=== PATIENT | female | born 1970 | race Caucasian/White ===

== ENCOUNTER 2020-09-15 16:12 | Emergency (ER) | payer MEDICARE, MEDICAID ==
[2020-09-15 16:18] VITALS: BP 133/89
[2020-09-15] MEDS ORDERED: DICL75TA2 PO (16:28)
--- NOTE | 2020-09-15 16:28 | ED Hip Pain/Injury ---
General Chief Complaint: Hip/Pelvic Problems Stated Complaint: TAILBONE PAIN Nursing Triage Note: Has broken tailbone twice this year and is having pain. Had toradol shot today at the clinic from pcp. Source: patient, RN/MD, RN notes reviewed Exam Limitations: no limitations History of Present Illness Date Seen by Provider: Sep 15, 2020 Time Seen by Provider: 16:15 Initial Comments This patient is a 41-year-old female presents to her chronic tailbone and hip pain. Her previous fractured coccyx. Patient has no recent injuries. Patient en route and recently to the area and establish primary care for [facility] clinic. Patient be removed refills of her chronic medications but clinic advised him to come to the emergency department and established chronic pain management. I did discuss at length with patient that we do not do quite management to the emergency department. I did review patient's history with the patient on nursing staff. And did offer nonsteroidal pain medications patient will need follow-up primary [facility] when transferring medication or prescription for she states understanding. Patient states this resolved Toradol shot in the clinic just prior to arrival to the emergency department. I advised the patient that I could write her prescription for pain medication diclofenac machine was immediately 8 hours before taking medications since was given a shot of Toradol. Patient states understanding. Patient will be discharged home follow up with PCP as instructed. Severity: mild Location: pelvis Method of Injury: unknown Associated Symptoms: denies symptoms Allergies and Home Medications Allergies Coded Allergies: meperidine (Verified Allergy, Unknown, "feels trapped", 09/15/20) Patient Home Medication List Home Medication List Reviewed: Yes Review of Systems Constitutional: No no symptoms reported; see HPI; No chills, No diaphoresis, No dizziness, No fever, No malaise, No weakness, No weight gain, No weight loss, No other EENTM: No see HPI, No no symptoms reported, No ear discharge, No hearing loss, No ear pain, No blurred vision, No double vision, No eye pain, No tearing, No vision loss, No dental problems, No hoarseness, No mouth pain, No mouth swelling, No epistaxis, No nose congestion, No nose pain, No throat pain, No throat swelling, No other Respiratory: No no symptoms reported, No see HPI, No cough, No dyspnea on e xertion, No hemoptysis, No orthopnea, No phlegm, No short of breath, No stridor, No wheezing, No other Cardiovascular: No no symptoms reported, No see HPI, No chest pain, No edema, No Hx of Intervention, No palpitations, No syncope, No vascular heart diseas, No other Genitourinary: No no symptoms reported, No see HPI, No decreased output, No discharge, No dysuria, No frequency, No hematuria, No hesitancy, No incontinence, No nocturia, No pain, No other Musculoskeletal: No no symptoms reported; see HPI; No back pain, No gout, No joint pain, No joint swelling, No muscle pain, No muscle stiffness, No muscle cramps, No muscle twitching, No muscle weakness, No neck pain, No other All Other Systems Reviewed Negative Unless Noted: Yes Past Zsatxxn-Iiqrst-Byfzmk Hx Patient Social History Alcohol Use: Denies Use Recreational Drug Use: No Smoking Status: Unknown if Ever Smoked 2nd Hand Smoke Exposure: No Recent Foreign Travel: No Contact w/Someone Who Travel: No Recent Infectious Disease Expo: No Recent Hopitalizations: No Physical Abuse: No Sexual Abuse: No Mistreated: No Fear: No Seasonal Allergies Seasonal Allergies: No Physical Exam Vital Signs Vital Signs - First Documented 09/15/20 16:18 Temp 36.3 Pulse 68 Resp 16 B/P (MAP) 133/89 (104) Pulse Ox 100 Capillary Refill : Less Than 3 Seconds Height, Weight, BMI Height: '" Weight: lbs. oz. kg; BMI Method: General Appearance: No Apparent Distress, WD/WN Cardiovascular: Regular Rate, Rhythm, No Edema, No Gallop, No JVD, No Murmur, Normal Peripheral Pulses Respiratory: Chest Non Tender, Lungs Clear, Normal Breath Sounds, No Accessory Muscle Use, No Respiratory Distress Gastrointestinal: Normal Bowel Sounds, No Organomegaly, No Pulsatile Mass, Non Tender, Soft Back: Normal Inspection, No CVA Tenderness, No Vertebral Tenderness, Other Extremity: Normal Capillary Refill, Normal Inspection, Normal Range of Motion, Non Tender, No Calf Tenderness, No Pedal Edema Skin: Normal Color, Warm/Dry Progress/Results/Core Measures Results/Orders Vital Signs/I&O 09/15/20 16:18 Temp 36.3 Pulse 68 Resp 16 B/P (MAP) 133/89 (104) Pulse Ox 100 Blood Pressure Mean: 104 Progress Progress Note : Time: 16:26 Progress Note Negative evaluation in the emergency department. Patient has no acute emergent complaints. Patient requesting only medications for pain control chronic in nature. Patient was offered nonsteroidal pain medication prescription. Advised follow-up with primary care physician for chronic pain management. Patient states und erstanding patient be discharged home patient needs to wait at least 8 hours prior to take any medications given since the patient was given a port all shot in the clinic prior to arrival to the emergency department. Again patient has no specific emergent complaints. Rest alternate heat and ice as needed. Tylenol as needed for pain. Diclofenac as needed for pain. Follow-up with PCP for any additional medications for chronic pain. Continue all home medications Departure Impression Primary Impression: Encounter for medical screening examination Additional Impression: Chronic pain Disposition: HOME, SELF-CARE Condition: Stable Departure-Patient Inst. Decision time for Depature: 16:27 Referrals: JANA WILKINS APRN (PCP) Primary Care Physician Patient Instructions: Chronic Pain (DC) Add. Discharge Instructions: Rest alternate heat and ice as needed. Tylenol as needed for pain. Diclofenac as needed for pain. Follow-up with PCP for any additional medications for chronic pain. Continue all home medications All discharge instructions reviewed with patient and/or family. Voiced understanding. Scripts Diclofenac Sodium (Diclofenac Sodium) 75 Mg Tablet. 75 MG PO BID for 10 Days, #20 TAB 0 Refills Prov: PRITI MORGAN MD 09/15/20 PRITI MORGAN MD Sep 15, 2020 16:28
== END 2020-09-15 16:31 | disposition home or self-care (01) ==
LOC: ER FS 16:14
DX: G89.29 Other chronic pain (principal); M53.3 Sacrococcygeal disorders, not elsewhere classified; Z88.5 Allergy status to narcotic agent
CPT/HCPCS: 99283

== ENCOUNTER 2020-09-23 18:05 | Emergency (ER) | payer MEDICARE, MEDICAID ==
[~2020-09-23] VITALS: Ht 162 cm; Wt 65.0 kg
[~2020-09-23 18:05] MED LIST: DICL75TA2 PO
[2020-09-23 18:16] VITALS: BP 136/8
[2020-09-23 18:59] LABS: AMPHETAMINE SCREEN, URINE POSITIVE (NEGATIVE); BARBITURATE SCREEN URINE NEGATIVE (NEGATIVE); BENZODIAZEPINES SCREEN URINE NEGATIVE (NEGATIVE); CANNABINOID SCREEN, URINE POSITIVE (NEGATIVE); COCAINE SCREEN URINE NEGATIVE (NEGATIVE); METHADONE STAT NEGATIVE (NEGATIVE); METHAMPHETAMINE SCREEN URINE S POSITIVE (NEGATIVE); OPIATE SCREEN URINE NEGATIVE (NEGATIVE); OXYCODONE STAT NEGATIVE (NEGATIVE); PROPOXYPHENE STAT NEGATIVE (NEGATIVE); TRICYCLIC ANTIDEPRESSANTS SCRE NEGATIVE (NEGATIVE)
== END 2020-09-23 18:44 | disposition home or self-care (01) ==
LOC: EDUNIT# 18:05 → ER FS 18:07
DX: Z00.00 Encounter for general adult medical examination without abnormal findings (principal)
CPT/HCPCS: 80306; 99283